=== PATIENT | male | born 1965 | race Caucasian/White ===

== ENCOUNTER 2019-12-24 01:58 | Emergency (ER) | payer SELFPAY ==
[~2019-12-24] VITALS: Ht 182.9 cm; Wt 103.6 kg
[2019-12-24 02:08] VITALS: Ht 182.9 cm; Wt 103.6 kg
[2019-12-24] MEDS ORDERED: MOBIC7.5 MG (02:12)
[2019-12-24] MEDS ORDERED: HYDROCODON-ACE1 EAC7 PO (02:55)
[2019-12-24 03:10] VITALS: BP 134/70
== END 2019-12-24 03:10 | disposition home or self-care (01) ==
LOC: D.ER 01:58
DX: S70.02XA Contusion of left hip, initial encounter (principal); Y09 Assault by unspecified means; M25.552 Pain in left hip